=== PATIENT | female | born 1940 | race African-American/Black ===

== ENCOUNTER → 2023-06-04 | Outpatient (CLI) | payer MEDICARE, MEDICAID ==
[~2023-06-04] MED LIST: ERGO1250 PO
== END | disposition home or self-care (01) ==
LOC: US 09:46
PROVIDERS: ATTEND Internal Medicine Nephrology
DX: K80.20 Calculus of gallbladder without cholecystitis without obstruction (principal); R74.01 Elevation of levels of liver transaminase levels
CPT/HCPCS: 76700